=== PATIENT | male | born 1990 ===

== ENCOUNTER → 2021-12-21 | Outpatient (CLI) | payer OTHER ==
[~2021-12-21] MED LIST: DULO60CA7 PO; MECL-75 PO; META-21 PO; METO5TAB55 PO; NABU750T11 PO; NAPR500T8 PO; TIZA-75 PO
--- NOTE | 2021-12-21 13:43 | PDOC1 ---
INITIAL PAIN CONSULT DATE OF SERVICE: DOS: DATE: 12/21/21 TIME: 13:29 CHIEF COMPLAINT: Chief Complaint: Right upper extremity pain HISTORY OF PRESENT ILLNESS: 31-year-old male presents with history of pain status post injury at work September 23, 2018 patient describes that a cinderblock fell on him from a height above him at a worksite as patient was using a jackhammer and the cinderblock struck him on the top and side of the right shoulder. Patient reports he had no pain in the arm or shoulder prior to the incident, and since that time has had significant pain in the arm to the point where he is almost unable to use the right upper extremity at this time with any significant functional capacity. Patient reports the pain is radiating from the shoulder to the bicep and into the forearm into the hand the hand is sweaty on the right side turns different colors blue and red and gets spotty looking and has since shortly after the original injury. Patient reports the pain is constant sharp stabbing throbbing shooting in the right arm tingling with numbness radiating in the right arm as well as the posterior shoulder mostly in the anterior aspect of the biceps into the forearm and into the hand involving all the fingers patient has significant allodynia with very tender to even light touch and a recurrence on the right arm as well. Patient reports colder temperatures and cold air make the pain much worse as well. Patient has had physical therapy multiple times without significant improvement and sometimes with increased pain secondary to the inability to complete the therapy secondary to pain. Patient reports he had a stellate ganglion block on the right side in 2018 which was not helpful in decreasing the pain as well patient is also tried Cymbalta which had significant side effects and psychiatric suicidal ideation, Lyrica caused significant hypertension and topiramate had also significant psychiatric side effects. Patient rates his disability rating for 0-10 10 being the worst is a 10 with family home responsibilities recreation social activity occupation 9 with sexual behavior and self-care, 9 with life support activities. Patient reports it wakes him from sleep least 4-10 times a night and is unable to put any weight on his right arm or shoulder when sleeping patient reports he does not feel it is daily activities the point where his is helping him get dressed and use the restroom. Patient reports that the only thing that decrease the pain even moderately is smoking marijuana which he does generally twice daily by his report. PAST MEDICAL HISTORY: PMH: Hypertension, asthma, hearing loss, dizziness, headaches PREVIOUS SURGERIES: Past Surgical Hx: Hernia repair age 2 months CURRENT MEDICATIONS: Current Meds: Active Scripts Medications Dose Route/Sig Max Daily Dose Days Date Category Skelaxin (Metaxalone) 800 Mg Tablet 1 Tab PO TID 30 12/21/21 Reported Nabumetone 750 Mg Tablet 800 Mg PO BID 12/21/21 Reported Naproxen 500 Mg Tablet.dr 1 Tab PO BID 12/21/21 Reported Tizanidine Hcl 4 Mg Tablet 1 Tab PO QHS 12/21/21 Reported Reglan (Metoclopramide Hcl) 5 Mg Tablet 5 Mg PO BIDAC 12/21/21 Reported Cymbalta (Duloxetine Hcl) 60 Mg Capsule.dr 1 Cap PO DAILY 12/21/21 Reported Meclizine Hcl 25 Mg Tablet 1 Tab PO TID 12/21/21 Reported ALLERGIES; Allergies: Coded Allergies: pregabalin (Verified Adverse Reaction, Severe, drove him crazy, 12/21/21) topiramate (Verified Adverse Reaction, Severe, made him suicidal, 12/21/21) FAMILY HISTORY: Family Hx: No major medical conditions that patient lists in his history SOCIAL HISTORY: Social Hx: Patient does not niya alcohol does not smoke tobacco but does smoke marijuana again, twice daily to help decrease pain, is lives with his spouse and young children in [facility]. Patient worked as a construction secretary. Patient is currently off work secondary to the pain in the right upper extremity. REVIEW OF SYSTEMS: ROS: Positive for those items mentioned in history of present illness, all systems are reviewed, otherwise negative ,and are complete full and well-documented on patient's chart. PHYSICAL EXAM: VS: Blood pressures 155/112 pulse 101 respirations 20 temperature is 98.6 F height is 5 foot 6 inches weight is 248 pounds PE: PHYSICAL EXAMINATION: GENERAL: The patient is awake, alert, oriented, appropriate, very pleasant in demeanor HEENT: Shows normocephalic, atraumatic. Extraocular movements are intact and symmetrical. Oral cavity: Mucous membranes moist and pink. Dentition is in tact. NECK: Shows anterior throat supple without palpable lymphadenopathy noted. Swallow reflex symmetrical. CHEST: Shows normal on inspection. Breath sounds are clear bilaterally, distant but no rales or rhonchi auscultated. HEART: Shows S1, S2 clear. No murmurs auscultated. ABDOMEN: Soft, nontender, nondistended, obese. No palpable organomegaly is noted. No rebound or guarding demonstrated. BACK: Shows spine grossly in the midline. Normal-appearing cervical lordotic curvature. There is slightly increased thoracic kyphosis, some minor flattening of the lumbar lordotic curvature. EXTREMITIES: Upper extremities show deep tendon reflexes 2+ in the biceps and triceps tendons. Motor exam is to on a scale of 5 with right sales order coordinator, biceps and triceps flexion and 5/5 on the left. Peripheral pulses are 2+ radial. Patient's right upper extremity initially is in a sling patient holding it against his body in the protective manner. Patient wearing a T-shirt with the sleeve on the right rolled up so as not to contact the arm. Patient was able to take the sling off on his own but was wincing in pain with any movement of the shoulder or right upper extremity examined patient's arm shows edema in the wrist and hand compared to the left upper extremity with some bluish discoloration as well as some mottling appearance on the palmar surface mostly in the medial aspect and in a ulnar distribution of the hand with initial touch very significantly tender allodynia throughout the hand as well as the forearm mostly on the medial side and anterior side also into the biceps distribution as well as the lateral aspect and triceps on the right upper arm and lateral posterior and anterior shoulder. Patient shows no discoloration of the upper arm but from the elbow distal does have some increased ruborous appearance and mottling of the palmar surface as described. Patient initially had increased sweating on exam on the right hand and wrist as well compared to the left. As the exam progressed the hand became more pale and mottled compared to the left with the elbow in a more straightened position. Patient had significant difficulty removal of the clothing as well as the sling but insisted on doing it himself using his left arm to perform this. SKIN: Shows warm and dry, good turgor. No edema. No sores, rashes or bruising throughout. IMPRESSION: Impression: 31-year-old male with history of injury while at work right shoulder with resultant pain right upper extremity consistent with complex regional pain syndrome. Multiple physical therapy treatments and medications with significant side effects and no reduction in pain as well as interventional stellate ganglion block 2019 without reduction in pain. Hypertension Dizziness Anxiety and depression Plan: Options were discussed with the patient including continued physical therapies additional interventional treatments and medication managements. As patient has been through most procedurally oriented as well as physical therapy oriented and medication oriented treatments patient is resistant to try stellate ganglion block once again, as he had no significant improvement in 2019. We discussed the alternative of a spinal cord stimulator placed in the cervical distribution which is an indication for complex regional pain syndrome unresponsive to other therapies and medications. Patient was given information regarding the stimulator systems and would like to review this with his family prior to making decision whether he would like to try a temporary lead placement and evaluation. Patient will contact the clinic within the next week and we will answer any questions he may have at that time and consideration of spinal cord stimulation trial. SHANNAN ALEGRE MD Dec 21, 2021 13:43
== END | disposition home or self-care (01) ==
LOC: PNCL 10:07
PROVIDERS: ATTEND Anesthesiology
DX: M79.601 Pain in right arm (principal); I10 Essential (primary) hypertension; J45.909 Unspecified asthma, uncomplicated; Z79.899 Other long term (current) drug therapy; Z98.890 Other specified postprocedural states; Z88.8 Allergy status to other drugs, medicaments and biological substances
CPT/HCPCS: 99214; G0463

== ENCOUNTER → 2022-01-18 | Outpatient (CLI) | payer OTHER ==
[~2022-01-18] MED LIST changes: +BUPIVACAINE MPF 0.25% 10 ML VIAL. ONE; +IOHEXOL 180 MG/ML 10 ML VIAL. ONE
--- NOTE | 2022-01-18 10:54 | PDOC ---
Progress Note - Pain Clinic Date of Service: DOS: DATE: 01/18/22 TIME: 10:48 Diagnosis: Dx: Complex regional pain syndrome right upper extremity History or Present Illness: HPI: 32-year-old male returns for follow-up status post initial evaluation and after medical record review and extensive chart review determined patient had had an interscalene block with a shoulder manipulation in the past which he believes was a stellate ganglion block however this is not the case. Patient with complication of pain syndrome right upper extremity from my injury as previously recorded. Patient reports still significant pain and disability in the right upper extremity unchanged essentially patient reports some pain in the mid back however which is new as well as in the low back over the past several weeks patient reports his pain in the arm is a 10 on scale 10 is worst 9 on average 9 its least is a 9 today patient scribes aching sharp dull tight shooting burning stabbing tingling can be radiating constant severe and unbearable with any mot ion any rotation of the arm shoulder elbow some better function with the fingers but only in the fingers without significant pain. Patient reports still significant swelling in the arm changing colors mottling bluish discoloration reddish discoloration and swelling in the arm compared to the left. Patient reports no complete loss loss of motor function but significant disability with the right upper extremity and any functional capacity. We discussed a stellate ganglion with the patient earlier on the phone as well as today and we will proceed. Patient was informed that the expectations is to decrease the pain level and will likely not see significant functional improvement in the use of the right upper extremity, but if the pain is improved this may improve his quality of life. Patient understands and agrees. Physical Exam: VS: Blood pressure is 150/120 pulse 114 respirations 20 temperature 90.5 F height is 5 foot 6 inches weight is 256 pounds. PE: PHYSICAL EXAMINATION: GENERAL: The patient is awake, alert, oriented, appropriate, very pleasant in demeanor HEENT: Shows normocephalic, atraumatic. Extraocular movements are intact and symmetrical. Oral cavity: Mucous membranes moist and pink. Dentition is intact. NECK: Shows anterior throat supple without palpable lymphadenopathy noted. Swallow reflex symmetrical. CHEST: Shows normal on inspection. Breath sounds are clear bilaterally, no rales or rhonchi auscultated. HEART: Shows S1, S2 clear. No murmurs auscultated. ABDOMEN: Soft, nontender, nondistended. No palpable organomegaly is noted. No rebound or guarding demonstrated. BACK: Shows spine grossly in the midline. Normal-appearing cervical lordotic curvature. Cervical paraspinous muscles show symmetrical inspection, on palpation some moderate tenderness diffusely bilaterally diffusely without significant radiation. Patient is full rotation motion cervical spine both laterally as well as full extension full forward flexion. There is slightly increased thoracic kyphosis, some minor flattening of the lumbar lordotic curvature. Lumbar paraspinous muscles show symmetrical on inspection, on palpation shows some moderate tenderness diffusely throughout the upper, middle and lower distribution of the paraspinous muscles without specific trigger points, without radiation of pain. The patient has good rotational motion of the lumbar spine, both laterally as well as extension and flexion without significant difficulty. EXTREMITIES: Upper extremities show deep tendon reflexes 2+ in the patellar and tendo calcaneus tendons. Left motor exam is 5 on a scale of 5 with motion picture set grip, biceps and triceps flexion and to/5 on the right. Peripheral pulses are 2+ radial. Patient's right upper extremity shows significant tenderness with even light touch and significant allodynia over the shoulder itself and into the biceps and forearm patient initially and have the right upper extremity in a sling holding it against his body in a protective manner. Patient has some bluish disco loration as well as some mottling appearance on the palmar surface of the hand in the medial distribution and the ulnar distribution of the forearm as well very tender with even very light touch in this distribution. Upper extremities are warm and dry. SKIN: Shows warm and dry, good turgor. No edema. No sores, rashes or bruising throughout. Procedure: Procedure: Options were discussed with the patient. Patient's old chart was reviewed his current medication regimen updated current review of systems updated today as well. We will proceed with a right-sided stellate ganglion block today with fluoroscopic guidance. Risks were discussed including but not limited to bleeding infection possibility of vascular injection sequelae spread of local anesthetic and numbness side effects steroid medication total spinal block and resuscitative measures if necessary as well as poor results regarding pain control. Patient understands wished to proceed. Patient will return to the clinic in approximately 2 weeks for follow-up and was counseled as to return appointment, activity level, and side effects to be aware of. Medication Injected: Med Injected: Patient in supine position under sterile prep and drape using C-arm fluoroscopic guidance patient cervical spine was identified and the C6 right transverse process identified. Using 25-gauge needle and 1% lidocaine the area over the C6 transverse process was topically anesthetized. Using a 22-gauge Khalif tip ne edle with stylette under direct visualization with fluoroscopy was advanced to the medial aspect of the C6 transverse process on the right with good contact of the transverse process. Stylet was removed and aspiration was noted to be negative. At this time 1.5 cc of contrast was injected with good local spread, then waited 30 seconds with no uptake of the contrast. Aspiration again verified to be negative at this time 10 cc of 0.25% bupivacaine was then injected intermittently with aspiration negative throughout the injection. Needle was removed sterile bandage was applied. Patient tolerated the procedure well and had no complications. Condition at Discharge: Condition at Discharge: Condition at discharge stable, patient tolerated the procedure well and had no complications. SHANNAN ALEGRE MD Jan 18, 2022 10:54
--- NOTE | 2022-01-18 10:55 | PDOC4 ---
Procedure Note: ICD 10 Code: ICD 10 Code: G90.511 Procedure Note: Patient was consented for right-sided stellate ganglion block with fluoroscopic guidance. Risk were discussed including but not limited to bleeding infection possibility intravascular injection sequelae spread local anesthetic numbness, spinal block with resuscitative measures if necessary as well as poor results regarding pain control and exposure to fluoroscopy. Patient understands wished to proceed. Patient in supine position under sterile prep and drape using C-arm fluoroscopic guidance patient cervical spine was identified and the C6 right transverse process identified. Using 25-gauge needle and 1% lidocaine the area over the C6 transverse process was topically anesthetized. Using a 22-gauge Khalif tip needle with stylette under direct visualization with fluoroscopy was advanced to the medial aspect of the C6 transverse process on the right with good contact of the transverse process. Stylet was removed and aspiration was noted to be negative. At this time 1.5 cc of contrast was injected with good local spread, then waited 30 seconds with no uptake of the contrast. Aspiration again verified to be negative at this time 10 cc of 0.25% bupivacaine was then injected intermittently with aspiration negative throughout the injection. Needle was removed sterile bandage was applied. Patient tolerated the procedure well and had no complications. SHANNAN ALEGRE MD Jan 18, 2022 10:55
== END | disposition home or self-care (01) ==
LOC: PNCL 10:26
PROVIDERS: ATTEND Anesthesiology
DX: G90.511 Complex regional pain syndrome I of right upper limb (principal); Z79.899 Other long term (current) drug therapy; Z91.040 Latex allergy status; Z88.8 Allergy status to other drugs, medicaments and biological substances
CPT/HCPCS: 64510; 77003; J3490; Q9965

== ENCOUNTER → 2022-01-23 | Outpatient (CLI) | payer OTHER ==
[~2022-01-23] MED LIST changes: -BUPIVACAINE MPF 0.25% 10 ML VIAL. ONE; -IOHEXOL 180 MG/ML 10 ML VIAL. ONE
--- NOTE | 2022-01-23 11:40 | PDOC ---
Progress Note - Pain Clinic Date of Service: DOS: DATE: 01/23/22 TIME: 11:31 Diagnosis: Dx: Complex regional pain syndrome right upper extremity History or Present Illness: HPI: 32-year-old male returns for follow-up status post right stellate ganglion block January 18, 2022. Patient returns reports he was able to tolerate some warm water in the shower on his right arm for about 30 minutes away is usually about 5 to 10 minutes toleration but other than that the pain is essentially unchanged after the injection patient did feel that the arm was warmer for the remainder of the day following the injection but as far as any change in mobility or capab ilities with the right upper extremity is still the same patient reports after several hours following the injection it was back at baseline. Patient rates his pain as 9 on scale 10 at worst average at its least and is a 9 today. Patient reports tingling burning cramping stabbing aching sharp feels cleaner industrial the hand shooting pains in the shoulder and arm as well that is constant and severe especially with any mobility patient still wearing his arm in a sling on the right side although is able to use his fingers he is unable to bear weight with the right upper extremity reach or extend the arm with any comfort or capability. Patient reports some minor swelling at the site of the injection after the injection for approximately 4 to 5 hours but this resolved very quickly after that. Physical Exam: VS: Blood pressure 160/90 pulse 82 respirations 20 temperature 90.1 F height is 5 feet 6 inches weight is 257 pounds. PE: PHYSICAL EXAMINATION: GENERAL: The patient is awake, alert, oriented, appropriate, very pleasant in demeanor HEENT: Shows normocephalic, atraumatic. Extraocular movements are intact and symmetrical. NECK: Shows anterior throat supple without palpable lymphadenopathy noted. Swallow reflex symmetrical. CHEST: Shows normal on inspection. Breath sounds are clear bilaterally. HEART: Shows S1, S2 clear. No murmurs auscultated. ABDOMEN: Soft, nontender, nondistended. No palpable organomegaly is noted. BACK: Shows spine grossly in the midline. Normal-appearing cervical lordotic curvature. Cervical paraspinous muscles show symmetrical inspection on palpation some mild tenderness diffusely in the middle and lower distribution the paraspinous muscles but shows full rotation motion cervical spine both laterally as well as extension flexion without significant limitation or difficulty. There is slightly increased thoracic kyphosis, some minor flattening of the lumbar lordotic curvature. EXTREMITIES: Upper extremities show deep tendon reflexes 2+ left and 1+ right in the biceps tendons. Motor exam is 5 out of 5 on left with motor equipment lieutenant strength bicep and tricep flexion and 2 on a scale of 5 with right motor equipment lieutenant, biceps and triceps flexion. Peripheral pulses are 2+ radial. Patient shows significant allodynia o anitha the right anterior shoulder as well as in the biceps and triceps into the forearm both anteriorly and posteriorly with some mottling and discoloration noted on the anterior aspect of the forearm with significant allodynia as well, also significant temperature warmth with touch on the right arm and hand compared to the left. Patient wearing his T-shirt with the sleeve rolled up on the right side not to contact his shoulder. SKIN: Shows warm and dry, good turgor. No edema. No sores, rashes or bruising throughout. Procedure: Procedure: Options discussed with the patient. Patient's old chart was reviewed as his current medication regimen updated current review of systems updated today as well. We had an in-depth discussion regarding treatment and potential future outcomes. I discussed with him in detail that do not feel that he will have full use of his right upper extremity in the future but may gain some function eventually. Patient has difficulty with even simple functions of getting dressed using the bathroom and requires assistance from his spouse for all daily and home maintenance activities, such as bathing and clothing changing, bathroom functions. We discussed with spinal cord stimulator therapy he may gain some function in the right arm but will most likely not be returning to preinjury function. Patient is depressed by this information however does acknowledge it. As he has had minimal results with recent stellate ganglion block, we will preauthorize patient with a psychiatric valuation 1st and preauthorization with his insurance provider for spinal cord stimulator temporary leads trial placement. Medication Injected: Med Injected: None Condition at Discharge: Condition at Discharge: Condition at discharge is stable. SHANNAN ALEGRE MD Jan 23, 2022 11:40
== END | disposition home or self-care (01) ==
LOC: PNCL 10:28
PROVIDERS: ATTEND Anesthesiology
DX: G90.511 Complex regional pain syndrome I of right upper limb (principal); Z79.899 Other long term (current) drug therapy; Z91.040 Latex allergy status; Z88.8 Allergy status to other drugs, medicaments and biological substances
CPT/HCPCS: 99212; G0463